=== PATIENT | male | born 1970 | race African-American/Black ===

== ENCOUNTER 2018-07-22 11:42 | Emergency (ER) | payer SELFPAY ==
[2018-07-22 11:58] VITALS: BP 201/123; PULSE 105; TEMP 98.2; BMI 35.5
[2018-07-22] MEDS ORDERED: amLODIPine BESYLATE 5 MG TABLET (FP) PO ONE (12:49)
[2018-07-22] MEDS ORDERED: amLODIPine BESYLATE 5 MG TABLET (FP) ONE (12:56)
--- NOTE | 2018-07-22 12:57 | PDOC ---
History of Present Illness - General Chief Complaint: Rash Stated Complaint: CELLULITIS Time Seen by Provider: 07/22/18 12:23 History Source: Patient Exam Limitations: No Limitations - History of Present Illness Initial Comments: 07/22/18 13:02 PT is a 47yo M with PMH of HTN presenting to ED with complaints of facial cellulitis. Pt said he had an episode the same as today back in January. He was given antibiotics and sent home. Symptoms started this morning. Pt noticed redness to the R cheek and a burning sensation. He also admits to a headache. He denies fever, pain, congestion, changes in vision, changes in hearing, chest pain, SOB, abdominal pain, N/V/D, throat pain. PMH: htn PSH: none Meds: amlodipine Social: smokes 5 cigarettes/day. Past History - Past Medical History Allergies/Adverse Reactions: Allergies Allergy/AdvReac Type Severity Reaction Status Date / Time No Known Allergies Allergy Verified 07/22/18 11:58 Home Medications: Ambulatory Orders Amoxicillin - [Amoxicillin 500mg Capsule -] 500 mg PO TID 7 Days #21 capsule 01/07 COPD: No HTN: Yes - Suicide/Smoking/Psychosocial Hx Smoking History: Never smoked *Physical Exam - Vital Signs Last Vital Signs Temp Pulse Resp BP Pulse Ox 98.2 F 105 H 20 201/123 97 07/22/18 11:54 07/22/18 11:54 07/22/18 11:54 07/22/18 11:54 07/22/18 11:54 - Physical Exam HEENT: positive: Other (Redness and warmth of R cheek. ) Medical Decision Making - Medical Decision Making 07/22/18 12:59 pt is a 47yo m with PMH of HTN presenting to ED with facial cellulitis. Pt had this in the past. Pt is tachycardic at 107, hypertensive. Pt has not seen a PCP in over 1 year. Not sure what baseline bp is. Draw CBC, CMP to see WBC. Will give amlodipine 5mg Pt refusing blood, just wants abx. Pt was told about the risks of refusing testing. Will give amox 500mg TID. Pt given strict return precautions. Pt given handout for PCPs. *DC/Admit/Observation/Transfer Diagnosis at time of Disposition: Cellulitis Qualifiers: Site of cellulitis: face Qualified Code(s): L03.211 - Cellulitis of face - Discharge Dispostion Disposition: HOME Condition at time of disposition: Stable Decision to Admit order: No - Prescriptions Prescriptions: Amoxicillin - [Amoxicillin 500mg Capsule -] 500 mg PO TID 7 Days #21 capsule - Referrals - Patient Instructions Printed Discharge Instructions: DI for Cellulitis -- Adult, DI for High Blood Pressure Additional Instructions: You were seen here today for cellulitis. I prescribed amoxicillin 500mg to take three times a day for 7 days. You need to start seeing a primary care doctor. I have given you a pamphlet with doctors affiliated with [facility]. Please try to schedule an appointment within the next week so that your blood pressure can be properly controlled. Please come back to the ED if: your symptoms get worse, you notice changes in vision/hearing, you feel short of breath, you develop fever or if any new concerning symptom develops. Thank you - Post Discharge Activity
--- NOTE | 2018-07-22 12:59 | PDOC ---
Attending Attestation - Resident Resident Name: KellenSaMarilee - ED Attending Attestation I have performed the following: I have examined & evaluated the patient, The case was reviewed & discussed with the resident, I agree w/resident's findings & plan, Exceptions are as noted - HPI HPI: 07/22/18 12:54 47-year-old male patient with past medical history of hypertension, but not taking his medications and without a primary care physician presents with mild facial cellulitis. The patient reports that this morning he started no very mild 3 x 3 cm erythema along the right maxillary facial region. Denies headache to me for fevers or chills. Does report his blood pressure runs elevated as patient has not been taking his medications as he changed jobs and has not had his prescription amlodipine. He does not know the dose or how frequently he takes it. - Physicial Exam PE: 07/26/18 16:14 GENERAL: NAD, AAOx3 HEENT: mild 3x3 cm facial erythema. no induration or fluctuance. - Medical Decision Making 07/22/18 12:56 Vital Signs Temp Pulse Resp BP Pulse Ox 98.2 F 105 H 20 201/123 97 07/22/18 11:54 07/22/18 11:54 07/22/18 11:54 07/22/18 11:54 07/22/18 11:54 The patient has very mild preseptal cellulitis and I am not concerned for deeper space infections. I will prescribe amoxicillin for skin infection. No signs of orbital Seles. Denies visual acuity change.The patient's blood pressure noted be quite elevated at 201/123 likely secondary to nonadherence. I had advised her strongly about working the hypertension up with this patient given that he has not had follow-up. However, the patient feels strongly that he would like to go home as he needs to get to work. States that he has no other symptoms at this time other than the facial sinuses requesting antibiotic. Does not want the IV blood work or any other workup done. The patient does have capacity and these will do explain risks to me including risk of MD, stroke, hypertension emergencies. Given that the patient is able to repeat the risks and can make decisions, we'll allow the patient to be discharged home. We had made an appointment with the patient with the primary care physician at the resident clinic.
== END 2018-07-22 13:11 | disposition home or self-care (01) ==
LOC: JER 11:42
DX: L03.211 Cellulitis of face (principal); I10 Essential (primary) hypertension; Z91.14 Patient's other noncompliance with medication regimen
CPT/HCPCS: 99281-25

== ENCOUNTER 2019-05-18 10:33 | Emergency (ER) | payer OTHER ==
[2019-05-18 10:37] VITALS: BP 152/85; PULSE 107; TEMP 98.5; BMI 33.4
[2019-05-18] MEDS ORDERED: KETOROLAC TROMETHAMINE 60 MG/2 ML VIAL IM ONE (10:57)
[2019-05-18] MEDS ORDERED: CYCLOBENZAPRINE HCL 10 MG TABLET (FP) PO ONE (10:57)
--- NOTE | 2019-05-18 10:58 | PDOC ---
History of Present Illness - General Chief Complaint: Chronic pain Stated Complaint: BACK PAIN Time Seen by Provider: 05/18/19 10:54 History Source: Patient - History of Present Illness Associated Symptoms: denies: fever/chills, nausea/vomiting, weakness Past History - Travel Traveled outside of the country in the last 30 days: No - Past Medical History Allergies/Adverse Reactions: Allergies Allergy/AdvReac Type Severity Reaction Status Date / Time No Known Allergies Allergy Verified 05/18/19 10:37 Home Medications: Ambulatory Orders Methocarbamol 500 mg PO TID 10 Days #30 tablet 05/18/19 Naproxen [EC-Naproxen] 500 mg PO BID 15 Days #30 tablet. 05/18/19 COPD: No HTN: Yes Other medical history: ENLARGED PROSTATE - Suicide/Smoking/Psychosocial Hx Smoking History: Former smoker Have you smoked in the past 12 months: Yes Information on smoking cessation initiated: No Review of Systems - Review of Systems Able to Perform ROS?: Yes Is the patient limited Cuban proficient: No Constitutional: No: Chills, Fever ABD/GI: No: Abdominal Distended : No: Flank Pain, Hematuria, Incontinence, Pain, Urgency, Testicular Swelling , Lesions, Testicular Pain Musculoskeletal: Yes: Back Pain, Muscle Pain, Other (+ left sided back apin). No: Joint Pain, Joint Swelling, Muscle Weakness, Neck Pain, Joint Stiffness Neurological: No: Numbness, Paresthesia, Tingling, Tremors, Weakness, Unsteady Gait *Physical Exam - Vital Signs Last Vital Signs Temp Pulse Resp BP Pulse Ox 98.5 F 107 H 20 152/85 99 05/18/19 10:35 05/18/19 10:35 05/18/19 10:35 05/18/19 10:35 05/18/19 10:35 - Physical Exam General Appearance: Yes: Nourished Respiratory/Chest: positive: Lungs Clear, Normal Breath Sounds Cardiovascular: positive: Regular Rhythm, Regular Rate, S1, S2 Musculoskeletal: positive: Muscle Spasm (left lower back, + ttp in L sciatic notch area, no weakness) Extremity: positive: Normal Capillary Refill, Normal Inspection, Normal Range of Motion 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, Fully Oriented, Alert, Normal Mood/ Affect, Normal Response, Motor Strength 5/5 Medical Decision Making - Medical Decision Making 05/18/19 10:58 48y/o M with h/o chronic back pain with left sided sciatica presents with exacerbation X 2 days denies weakness, UTI sx or fall UA wnl pt reassessed, felt better pain control pain management follow up *DC/Admit/Observation/Transfer Diagnosis at time of Disposition: Back pain with sciatica - Discharge Dispostion Disposition: HOME Condition at time of disposition: Stable Decision to Admit order: No - Prescriptions Prescriptions: Methocarbamol 500 mg PO TID 10 Days #30 tablet Naproxen [EC-Naproxen] 500 mg PO BID 15 Days #30 tablet.dr - Referrals Referrals: Al Martinez MD [Staff Physician] - - Patient Instructions Printed Discharge Instructions: DI for Back Pain With Sciatica Additional Instructions: Please take medication as prescribed follow up with pain management for further evaluation return to the ER if worsening symptoms occurs. - Post Discharge Activity Forms/Work/School Notes: Back to Work
[2019-05-18] MEDS ORDERED: KETOROLAC TROMETHAMINE 60 MG/2 ML VIAL ONE (11:00)
[2019-05-18] MEDS ORDERED: CYCLOBENZAPRINE HCL 10 MG TABLET (FP) ONE (11:01)
[2019-05-18 11:41] LABS: PH,URINE 6.5 (5.0-8.0); URINE APPEARANCE CLEAR; URINE BILIRUBIN NEGATIVE (NEGATIVE); URINE COLOR YELLOW; URINE GLUCOSE (UA) NEGATIVE (NEGATIVE); URINE KETONE NEGATIVE (NEGATIVE); URINE LEUK ESTERASE NEGATIVE (NEGATIVE); URINE NITRITE NEGATIVE (NEGATIVE); URINE PROTEIN NEGATIVE (NEGATIVE)
== END 2019-05-18 12:02 | disposition home or self-care (01) ==
LOC: JERFT 10:33
PROC: 3E0233Z Introduction of Anti-inflammatory into Muscle, Percutaneous Approach (ICD-10-PCS; principal; 2019-05-18)
DX: M54.42 Lumbago with sciatica, left side (principal); I10 Essential (primary) hypertension; N40.0 Benign prostatic hyperplasia without lower urinary tract symptoms
CPT/HCPCS: 81003; 96372; 99281-25